=== PATIENT | female | born 1950 | race Caucasian/White ===

== ENCOUNTER 2021-07-17 21:05 | Inpatient (IN) | payer MEDICARE, OTHER ==
[~2021-07-17] VITALS: Ht 165.1 cm; Wt 61.2 kg
[2021-07-17 21:06] VITALS: BP 163/78
[2021-07-17] MEDS ORDERED: BENICAR40 MG PO (21:12)
[2021-07-17] MEDS ORDERED: DIGOX125 MCG PO (21:12)
[2021-07-17] MEDS ORDERED: ATENOLOL 50MG T50 M1 PO (21:12)
[2021-07-17] MEDS ORDERED: GLUMETZA1000 PO (21:13)
[2021-07-17] MEDS ORDERED: HYDROCHLOROTHIA25 M1 PO (21:13)
[2021-07-17] MEDS ORDERED: ASA81BEC PO (21:14)
[2021-07-17] MEDS ORDERED: VITAMIN C1000 MG PO (21:14)
[2021-07-17] MEDS ORDERED: PRAVACHOL40 MG PO (21:14)
[2021-07-17] MEDS ORDERED: VITAMIN B-121000 MC3 PO (21:15)
[2021-07-17] MEDS ORDERED: MONUROL3 GM PO (21:16)
[2021-07-17] MEDS ORDERED: BACTRIM 400-801 EACH PO (21:16)
[2021-07-17 22:25] LABS: URINE BILIRUBIN NEGATIVE (Negative); URINE BLOOD 1+ (Negative); URINE CLARITY CLEAR; URINE COLOR YELLOW; URINE GLUCOSE-RANDOM NEGATIVE (Negative); URINE KETONES NEGATIVE (Negative); URINE LEUKOCYTES-REFLEX 1+ (Negative); URINE NITRITE-REFLEX NEGATIVE (Negative); URINE PROTEIN 1+ (Negative); URINE SPECIFIC GRAVITY >= 1.030 (1.005-1.030); URINE UROBILINOGEN 0.2 E.U./dl (0.2-1.0)
[2021-07-17 22:30] LABS: ABSOLUTE BASOPHILS 0.1 thou/uL (0.0-0.2); ABSOLUTE EOSINOPHILS 0.3 thou/uL (0.0-0.7); ABSOLUTE LYMPHOCYTES 6.2 thou/uL (0.8-5.3); ABSOLUTE MONOCYTES 1.4 thou/uL (0.0-1.2); ABSOLUTE NEUTROPHILS 7.6 thou/uL (1.6-8.1); BASOPHILS 0.8 %; EOSINOPHILS 1.6 %; HEMATOCRIT 38.1 % (37.0-47.0); HEMOGLOBIN 12.7 gm/dL (12.0-15.0); LYMPHOCYTES 39.6 %; MCH 29.6 pg (26.0-34.0); MCHC 33.3 g/dL (28.0-37.0); MONOCYTES 8.9 %; MPV 7.2 fl. (7.2-11.1); NUCLEATED RBCS 0 /100WBC; PLATELET COUNT* 304 thou/uL (150-400); POLYS 49.1 %; RBC 4.28 mil/uL (4.20-5.00); RDW-CV 12.6 % (10.5-14.5); WBC 15.6 thou/uL (4.0-11.0)
[2021-07-17 22:37] LABS: CREATININE 0.8 mg/dL (0.6-1.3); POTASSIUM 4.3 mmol/L (3.5-5.1)
[2021-07-17 22:42] LABS: ALBUMIN 4.1 g/dL (3.4-5.0); TOTAL BILIRUBIN 0.4 mg/dL (<0.1-1.0); TOTAL PROTEIN 7.9 g/dL (6.4-8.2)
[2021-07-17 22:51] LABS: SQUAMOUS 0-3 Few /LPF (0-3)
[2021-07-17 22:52] LABS: CASTS None Seen /LPF (None Seen)
[2021-07-17 22:53] LABS: CRYSTALS None Seen /LPF (None Seen); URINE RBC 0-2 Rare /HPF (0-2); URINE WBC-REFLEX >25 Many /HPF (0-5)
[2021-07-18 00:16] VITALS: BP 151/78
--- NOTE | 2021-07-18 04:19 | NUR ---
PT ARRIVED 0045. ALERT AND ORIENTED, ROOM AIR, PIVOTS WELL TO BSC. REPORTED BM YESTERDAY. NO SKIN ISSUES. WAS ABLE TO GET TO SLEEP AND STAY ASLEEP ALL SHIFT. SHE DID NOT REPORT ANY PAIN DURING ASSESSMENT.
[2021-07-18 08:05] VITALS: BP 132/55
[2021-07-18 15:40] VITALS: BP 133/49
--- NOTE | 2021-07-18 19:28 | NUR ---
PATIENT UP WALKING IN HALLS. PATIENT HAS CAM BOOT AND WALKER. PATIENT AWAITING CONSULTS FOR ID AND ORTHO, NOT SEEN TODAY. PATIENT HAS IV ABX INFUSING ORDERED. PATIENT HAS COMPLAINTS OF PAIN, TREATED ADEQUATELY WITH TRAMADOL. PATIENT HAS FAIR APPETITE. PATIENT DENIES ANY NEEDS AT THIS TIME. CALL LIGHT WITHIN REACH.
[2021-07-18 22:05] VITALS: BP 126/51
[2021-07-19 00:26] VITALS: BP 112/47
[2021-07-19 03:17] VITALS: BP 136/55
[2021-07-19 04:19] LABS: HEMATOCRIT 32.7 % (37.0-47.0); HEMOGLOBIN 11.1 gm/dL (12.0-15.0); MCH 29.8 pg (26.0-34.0); MCHC 33.9 g/dL (28.0-37.0); MCV 87.8 fL (80.0-100.0); MPV 7.3 fl. (7.2-11.1); RBC 3.72 mil/uL (4.20-5.00); RDW-CV 12.7 % (10.5-14.5); WBC 12.5 thou/uL (4.0-11.0)
[2021-07-19 04:33] LABS: CALCIUM 8.9 mg/dL (8.5-10.1); CREATININE 0.9 mg/dL (0.6-1.3); POTASSIUM 3.8 mmol/L (3.5-5.1)
--- NOTE | 2021-07-19 05:23 | NUR ---
PT AMBULATING IN HALLS WITH CAM BOOT AND WALKER AT START OF SHIFT. AOX4, PLEASANT. LAC SL, ABX GIVEN ORDERED. PT CO NAUSEA, UPSET STOMACH ABOUT 0300. SPRITE AND ICE CHIPS GIVEN PER PT REQUEST. PT CO "DRY HEAVES A COUPLE OF TIMES" BUT DOES NOT WANT ANY MEDS FOR PAIN OR NAUSEA AT THIS TIME. AM LABS. LAC SL, HAND WITH SOME EDEMA OVERNIGHT, ELEVATED ON PILLOW WITH GOOD RESULT. ORTHO TO CONSULT, AND ID. ABLE TO USE CALL LITE AND MAKE NEEDS KNOWN.
[2021-07-19 07:50] VITALS: BP 135/61
[2021-07-19 16:00] VITALS: BP 104/53
--- NOTE | 2021-07-19 17:35 | NUR ---
PATIENT RESTING IN BED. PATIENT IS UP AD SERAFIN IN ROOM WITH CAM BOOT. PATIENT HAD COMPLAINTS OF NAUSEA THROUGHOUT DAY BUT IS FEELING BETTER THIS EVENING. PATIENT HAS POOR APPETITE DUE TO NAUSEA. PATIENT DENIES ANY NEEDS AT THIS TIME. CALL LIGHT WITHIN REACH.
[2021-07-19 19:45] VITALS: BP 141/64
[2021-07-20 04:50] LABS: HEMATOCRIT 31.9 % (37.0-47.0); MCH 29.9 pg (26.0-34.0); MCHC 34.4 g/dL (28.0-37.0); MPV 7.5 fl. (7.2-11.1); RBC 3.67 mil/uL (4.20-5.00); WBC 9.6 thou/uL (4.0-11.0)
[2021-07-20 04:59] LABS: CALCIUM 8.6 mg/dL (8.5-10.1); CREATININE 0.8 mg/dL (0.6-1.3)
--- NOTE | 2021-07-20 05:20 | NUR ---
PT HAD MUCH BETTER NIGHT TONIGHT THAN LAST NIGHT. NO COMPLAINTS OF NAUSEA, PAIN MEDICATION NOT NEEDED. UP WITH WALKER AND CAM BOOT AMBULATING IN GALLO.ICE PACK PRN TO R KNEE. LAC SL IV. HS ACCUCHECK 158. AM LABS. ABLE TO USE CALL LITE AND MAKE NEEDS KNONW. PT AOX4, PLEASANT, HOPEFUL FOR DISCHARGE HOME SOON. ID TO CONSULT FOR UTI.
[2021-07-20 08:00] VITALS: BP 112/55
[2021-07-20] MEDS ORDERED: CEFUROXIME500 MG PO (12:53)
[2021-07-20 13:07] VITALS: BP 112/55
[2021-07-20 15:01] VITALS: BP 112/55
--- NOTE | 2021-07-20 15:02 | NUR ---
PATIENT DISCHARGED AT THIS TIME VIA WHEELCHAIR ACCOMPANIED BY STAFF TO PRIVATE VEHICLE. IV DC'D, COTTON BALL AND TAPE TO SITE. PERSONAL BELONGINGS GATHERED AND SENT HOME WITH PATIENT. DISCHARGE INSTRUCTIONS REVIEWED, ACKNOWLEDGED UNDERSTANDING. ALL QUESTIONS AND CONCERNS ADDRESSED.
--- NOTE | 2021-07-21 11:29 | EKG ---
[place] [id number] ELECTROCARDIOGRAM REPORT Name: YURI CALDWELL Room: [address] DIS IN [facility].#: [id number] Admission: 07/19/21 Attend Phys: Iman Paniagua MD Discharge: 07/20/21 Date of : 48 Date of Service: 07/19/21 0341 Report #: [id number] THIS REPORT FOR: //name// [facility] Test Date: 2021-07-19 Test Time: 03:41:48 Pat Name: YURI CALDWELL Department: Room: [address] Gender: F Sample Preparation Supervisor: = : [id number] Requested By: Iman Paniagua Order Number: [id number] Diandra MD: Ángel Guerra Measurements Intervals [place] Rate: 60 P: [place]: 177 QRS: 42 QRSD: 103 T: 29 QT: 401 QTc: 401 Interpretive Statements Atrial-paced rhythm Minimal ST depression, anterior leads No previous ECG available for comparison Electronically Signed On 07-21-2021 11:29:43 CDT by Ángel Guerra [email or web address] <ELECTRONICALLY SIGNED> By: Ángel Guerra MD, FACC 07/21/21 1129 034 0341 Ángel Guerra MD, [facility] /EPI
== END 2021-07-20 15:09 | disposition home or self-care (01) | DRG 543 ==
LOC: M.ERS 21:05 → M.3W 23:31 → M.TBA-ER 23:31 → M.3W 07-18 00:25
PROVIDERS: Emergency Medicine; Internal Medicine; ADMIT Family Medicine; ATTEND Family Medicine
DX: M80.072A Age-related osteoporosis with current pathological fracture, left ankle and foot, initial encounter for fracture (principal); E87.1 Hypo-osmolality and hyponatremia; N30.00 Acute cystitis without hematuria; Z16.20 Resistance to unspecified antibiotic; Z20.822 Contact with and (suspected) exposure to COVID-19; I10 Essential (primary) hypertension; E78.00 Pure hypercholesterolemia, unspecified; E11.9 Type 2 diabetes mellitus without complications; S89.91XA Unspecified injury of right lower leg, initial encounter; S99.912A Unspecified injury of left ankle, initial encounter; E78.5 Hyperlipidemia, unspecified; S80.01XA Contusion of right knee, initial encounter; B96.1 Klebsiella pneumoniae [K. pneumoniae] as the cause of diseases classified elsewhere; Z88.8 Allergy status to other drugs, medicaments and biological substances; Z79.82 Long term (current) use of aspirin; Z79.899 Other long term (current) drug therapy; X58.XXXA Exposure to other specified factors, initial encounter; Y93.89 Activity, other specified; Y92.89 Other specified places as the place of occurrence of the external cause; Y99.8 Other external cause status

== ENCOUNTER → 2021-08-18 | Outpatient (CLI) | payer MEDICARE, OTHER ==
[~2021-08-18] MED LIST: ASA81BEC PO; ATENOLOL 50MG T50 M1 PO; BACTRIM 400-801 EACH PO; BENICAR40 MG PO; CEFUROXIME500 MG PO; DIGOX125 MCG PO; GLUMETZA1000 PO; HYDROCHLOROTHIA25 M1 PO; MONUROL3 GM PO; PRAVACHOL40 MG PO; VITAMIN B-121000 MC3 PO; VITAMIN C1000 MG PO
[2021-08-18 10:31] LABS: ABSOLUTE BASOPHILS 0.1 thou/uL (0.0-0.2); ABSOLUTE EOSINOPHILS 0.2 thou/uL (0.0-0.7); ABSOLUTE MONOCYTES 1.3 thou/uL (0.0-1.2); ABSOLUTE NEUTROPHILS 10.7 thou/uL (1.6-8.1); BASOPHILS 0.8 %; HEMATOCRIT 38.1 % (37.0-47.0); HEMOGLOBIN 12.8 gm/dL (12.0-15.0); LYMPHOCYTES 24.6 %; MCH 29.5 pg (26.0-34.0); MCHC 33.5 g/dL (28.0-37.0); MCV 88.2 fL (80.0-100.0); MONOCYTES 7.8 %; MPV 6.5 fl. (7.2-11.1); NUCLEATED RBCS 0 /100WBC; PLATELET COUNT* 296 thou/uL (150-400); POLYS 65.8 %; RBC 4.32 mil/uL (4.20-5.00); WBC 16.2 thou/uL (4.0-11.0)
[2021-08-18 10:49] LABS: CALCIUM 9.4 mg/dL (8.5-10.1); CREATININE 0.8 mg/dL (0.6-1.3); POTASSIUM 4.8 mmol/L (3.5-5.1)
== END ==
LOC: M.LAB 10:09 → M.CT 13:00
PROVIDERS: ATTEND Family Medicine
DX: N39.0 Urinary tract infection, site not specified (principal); M54.9 Dorsalgia, unspecified; R35.0 Frequency of micturition; R31.9 Hematuria, unspecified; R80.9 Proteinuria, unspecified

== ENCOUNTER → 2021-09-09 | Outpatient (CLI) | payer OTHER | LOC: M.CT 09-07 09:00 | PROVIDERS: ATTEND Internal Medicine Cardiovascular Disease | DX: Z13.6 Encounter for screening for cardiovascular disorders (principal) ==

== ENCOUNTER → 2021-09-29 | Outpatient (CLI) | payer MEDICARE, OTHER ==
[2021-09-29 13:30] LABS: URINE BILIRUBIN NEGATIVE (Negative); URINE BLOOD 1+ (Negative); URINE CLARITY CLEAR; URINE COLOR YELLOW; URINE GLUCOSE-RANDOM NEGATIVE (Negative); URINE KETONES NEGATIVE (Negative); URINE LEUKOCYTES 3+ (Negative); URINE NITRITE NEGATIVE (Negative); URINE PROTEIN NEGATIVE (Negative); URINE UROBILINOGEN 0.2 E.U./dl (0.2-1.0)
[2021-09-29 14:14] LABS: CASTS None Seen /LPF (None Seen); CRYSTALS None Seen /LPF (None Seen); MUCUS 0-3 Light strn/LPF (None Seen); SQUAMOUS 0-3 Few /LPF (0-3); URINE RBC 0-2 Rare /HPF (0-2)
[2021-09-29 14:15] LABS: YEAST Present (None Seen)
== END ==
LOC: M.LAB 13:03
DX: N39.0 Urinary tract infection, site not specified (principal)

== ENCOUNTER 2021-11-28 13:43 | Emergency (ER) | payer MEDICARE, OTHER ==
[~2021-11-28] VITALS: Ht 165.1 cm; Wt 61.2 kg
[2021-11-28 14:01] LABS: URINE BILIRUBIN NEGATIVE (Negative); URINE BLOOD NEGATIVE (Negative); URINE CLARITY CLEAR; URINE COLOR YELLOW; URINE GLUCOSE-RANDOM NEGATIVE (Negative); URINE KETONES NEGATIVE (Negative); URINE LEUKOCYTES-REFLEX 1+ (Negative); URINE NITRITE-REFLEX NEGATIVE (Negative); URINE PROTEIN NEGATIVE (Negative)
[2021-11-28 14:10] LABS: SQUAMOUS 0-3 Few /LPF (0-3)
[2021-11-28 14:11] LABS: BACTERIA-REFLEX 1-9 Few /HPF (None Seen); CRYSTALS None Seen /LPF (None Seen)
[2021-11-28 14:12] LABS: CASTS None Seen /LPF (None Seen); URINE RBC 0-2 Rare /HPF (0-2)
[2021-11-28 14:49] LABS: ABSOLUTE BASOPHILS 0.1 thou/uL (0.0-0.2); ABSOLUTE EOSINOPHILS 0.3 thou/uL (0.0-0.7); ABSOLUTE LYMPHOCYTES 5.4 thou/uL (0.8-5.3); ABSOLUTE MONOCYTES 0.9 thou/uL (0.0-1.2); BASOPHILS 0.6 %; EOSINOPHILS 2.2 %; HEMATOCRIT 37.4 % (37.0-47.0); HEMOGLOBIN 12.4 gm/dL (12.0-15.0); LYMPHOCYTES 42.5 %; MCH 29.3 pg (26.0-34.0); MCHC 33.1 g/dL (28.0-37.0); MCV 88.6 fL (80.0-100.0); MONOCYTES 7.3 %; MPV 7.1 fl. (7.2-11.1); NUCLEATED RBCS 0 /100WBC; PLATELET COUNT* 343 thou/uL (150-400); POLYS 47.4 %; RBC 4.22 mil/uL (4.20-5.00); RDW-CV 13.5 % (10.5-14.5); WBC 12.7 thou/uL (4.0-11.0)
[2021-11-28 15:48] LABS: CALCIUM 9.4 mg/dL (8.5-10.1); CREATININE 0.9 mg/dL (0.6-1.3); POTASSIUM 4.1 mmol/L (3.5-5.1)
[2021-11-28] MEDS ORDERED: AUGMENTIN 500-1 EACH PO (16:31)
[2021-11-28 16:38] VITALS: BP 135/61
== END 2021-11-28 16:38 | disposition home or self-care (01) ==
LOC: M.ERS 13:43
PROVIDERS: Physician Assistant Medical
DX: N39.0 Urinary tract infection, site not specified (principal); Z79.899 Other long term (current) drug therapy; Z88.8 Allergy status to other drugs, medicaments and biological substances

== ENCOUNTER → 2021-12-02 | Outpatient (CLI) | payer MEDICARE, OTHER ==
[~2021-12-02] MED LIST changes: +AUGMENTIN 500-1 EACH PO
== END ==
LOC: M.LAB 11-26 07:00 → M.CT 11-26 08:00 → M.LAB 08:00 → M.CT 08:00
PROVIDERS: ATTEND Family Medicine
DX: R19.07 Generalized intra-abdominal and pelvic swelling, mass and lump (principal)